=== PATIENT | female | born 1960 | race Caucasian/White ===

== ENCOUNTER 2017-04-22 20:00 | Emergency (ER) | payer OTHER ==
[~2017-04-22] VITALS: Ht 182.9 cm; Wt 128.0 kg
[~2017-04-22 20:00] MED LIST: BENZ100 PO; TRAM50 PO; ZITH250T PO
[2017-04-22 20:09] VITALS: BP 199/97; PULSE 94; RESP 16; TEMP 99.3; O2SAT 98
--- NOTE | 2017-04-22 20:49 | RADRPT ---
EXAM DATE/TIME: 04/22/2017 20:30 [facility] COMPARISON: No previous studies available for comparison. INDICATIONS : Right ankle pain, fell MEDICAL HISTORY : None. SURGICAL HISTORY : None. ENCOUNTER: Initial ACUITY: 1 day PAIN SCORE: 7/10 LOCATION: Right Ankle FINDINGS: Three view exam was performed of the right ankle. The bony structures are in normal alignment. No e vidence of fracture, dislocation, or soft tissue swelling. The ankle mortise is intact. No radiopaq ue foreign bodies are seen. Bony mineralization is normal. CONCLUSION: Unremarkable examination of the right ankle. Lexx Aden Jr., MD on April 22, 2017 at 20:47 Board Certified Radiologist. This report was verified electronically.
--- NOTE | 2017-04-22 20:49 | RADRPT ---
EXAM DATE/TIME: 04/22/2017 20:33 [facility] COMPARISON: No previous studies available for comparison. INDICATIONS : Right foot pain and anterior abrasion, fell MEDICAL HISTORY : None. SURGICAL HISTORY : None. ENCOUNTER: Initial ACUITY: 1 day PAIN SCORE: 7/10 LOCATION: Right Foot FINDINGS: Three view examination of the right foot demonstrates no soft tissue swelling, dislocation, or fractu re. The tarsal bones appear intact. The interphalangeal and metatarsophalangeal joints are intact. The calcaneus is intact. Bony mineralization is normal. CONCLUSION: Unremarkable examination of the right foot. Lexx Aden Jr., MD on April 22, 2017 at 20:47 Board Certified Radiologist. This report was verified electronically.
[2017-04-22 21:24] VITALS: BP 164/96; PULSE 90; RESP 18; O2SAT 96
[2017-04-22] MEDS ORDERED: ESTR0.5T PO (21:24)
[2017-04-22] MEDS ORDERED: ARMO60TA PO (21:24)
--- NOTE | 2017-04-22 21:58 | PD ---
HPI Chief Complaint: Musculoskeletal Complaint Time Seen by Provider: 21:29 Travel History International Travel<30 days: No Contact w/Intl Traveler<30days: No Traveled to known affect area: No History of Present Illness HPI 56-year-old female presents to the ED via EMS after fall down 4 stairs around 7 PM today. Patient states that she missed the last few steps from the pool and landed on her foot and her bottom on concrete. She denies hitting her head or loss of consciousness. On presentation she complains of throbbing 7/10 pain in the ankle and foot. No alleviating or exacerbating factors reported. She has not been ambulatory since the accident. She denies history of previous injury. No treatment attempt at home. She states that she is otherwise healthy and takes no daily medications. PFSH Past Medical History Cancer: No High Cholesterol: Yes Diabetes: No Diminished Hearing: No Glaucoma: No Hepatitis: No Hiatal Hernia: No Hypertension: No Immunizations Current: No Thyroid Disease: No Tetanus Vaccination: Unknown Influenza Vaccination: No Menopausal: Yes : 2 Para: 2 Miscarriage: 0 : 0 Tubal Ligation: Yes (1987) Past Surgical History Section: Yes (1987) Gynecologic Surgery: Yes (LEFT OOPHORECTOMY, ) Hysterectomy: Yes Pacemaker: No Thoracic Surgery: Yes (left breast biopsy benign) Other Surgery: Yes (lymphoma left axillae ) Social History Alcohol Use: Yes (RARELY) Tobacco Use: No Substance Use: No Allergies-Medications (Allergen,Severity, Reaction): Coded Allergies: naproxen (Unverified Allergy, Severe, Anaphylaxis, 01/26/17) Reported Meds & Prescriptions Reported Meds & Active Scripts Active Ibuprofen 800 Mg Tab 800 Mg PO Q8H PRN Reported [place] Thyroid (Thyroid) 60 Mg Tab 60 Mg PO DAILY Estradiol 0.5 Mg Tab 0.5 Mg PO DAILY Review of Systems Except as stated in HPI: all other systems reviewed are Neg Physical Exam Narrative GENERAL: Well-nourished, well-developed white female in no acute distress. SKIN: Focused skin assessment warm/dry. HEAD: Normocephalic. EYES: No scleral icterus. No injection or drainage. NECK: Supple, trachea midline. No JVD or lymphadenopathy. CARDIOVASCULAR: Regular rate and rhythm without murmurs, gallops, or rubs. RESPIRATORY: Breath sounds equal bilaterally. No accessory muscle use. GASTROINTESTINAL: Abdomen soft, non-tender, nondistended. MUSCULOSKELETAL: No cyanosis, or edema. Focused right lower extremity exam: 2+ DP pulse. Tender edema and ecchymosis of the lateral malleolus. No tenderness to palpation of the base of the fifth. No navicular tenderness. Squeeze test negative. Cap refill less than 2 seconds. Sensation intact to light touch distally. BACK: Nontender without obvious deformity. No CVA tenderness. Data Data Last Documented VS Vital Signs Date Time Temp Pulse Resp B/P (MAP) Pulse Ox O2 Delivery O2 Flow Rate FiO2 04/22/17 22:24 04/22/17 21:24 90 18 96 Room Air 04/22/17 20:09 99.3 Orders Orders Foot, Complete ([id number]) (04/22/17 ) Ankle, Complete ([id number]) (04/22/17 ) Ibuprofen (Motrin) (04/22/17 22:00) Crutches (04/22/17 21:58) Splint Or Brace Apply/Monitor (04/22/17 21:58) Tremaine Bandage (04/22/17 21:58) Ed Discharge Order (04/22/17 21:58) Acetamin-Hydrocod 325-7.5 Mg ([place] 7.5 (04/22/17 22:15) MDM Medical Decision Making Medical Screen Exam Complete: Yes Emergency Medical Condition: Yes Differential Diagnosis Ankle sprain versus foot sprain versus musculoskeletal pain versus other Narrative Course 56-year-old female presents to the ED via EMS after fall down 4 stairs around 7 PM today. Patient states that she missed the last few steps from the pool and landed on her foot and her bottom on concrete. She denies hitting her head or LOC. She complains of throbbing 7/10 pain in the ankle and foot. She has not been ambulatory since the accident. Vitals reviewed. She is hypertensive on presentation, likely secondary to pain. Physical exam reveals a well-appearing white female in no acute distress. Focused right lower extremity exam reveals 2 + DP pulse. Tender edema and ecchymosis of the lateral malleolus. No tenderness to palpation of the base of the fifth. No navicular tenderness. Squeeze test negative. Cap refill less than 2 seconds. Sensation intact to light touch distally. The patient was administered 800 mg ibuprofen and 7.5 mg Lortab. X-rays of the ankle and foot reveal no acute bony injury per radiology read. This is ankle and foot sprain. Tremaine wrap, Velcro splint and crutches are provided to the patient. She is prescribed a short course of anti- inflammatories. She is instructed to rest, ice, elevate and compress the extremity, follow up with the bss solution architect. She indicated understanding of instructions and is agreeable care plan. She is stable and discharged home. Diagnosis Primary Impression: Inversion sprain of right ankle Qualified Codes: S93.401A - Sprain of unspecified ligament of right ankle, initial encounter Additional Impression: Sprain of right foot Qualified Codes: S93.601A - Unspecified sprain of right foot, initial encounter Referrals: Jun Preston DPM Patient Instructions: Ankle Sprain (ED), Foot Sprain (ED), General Instructions Additional Instructions: Rest, ice, elevate the extremity. Apply ice no longer than 10-15 minutes per hour a few times a day. 800 mg ibuprofen up to 3 times a day as needed for pain. Return to normal, gentle activity as tolerated. Weight-bearing as tolerated. No running, jumping activities for the next few weeks. Follow up with the bss solution architect. Return to the ED for any urgent or emergent medical condition. Med/Other Pt SpecificInfo: Prescription(s) given Scripts Ibuprofen (Ibuprofen) 800 Mg Tab 800 MG PO Q8H Y for Pain/Inflammation, #21 TAB 0 Refills Prov: Buddy Sheppard MD 04/22/17 Disposition: 01 DISCHARGE HOME Condition: Stable Gifty Anderson Apr 22, 2017 21:58
[2017-04-22] MEDS ORDERED: IBUPROFEN 800 MG TAB PO ONE (22:00)
[2017-04-22] MEDS ORDERED: IBUP1TAB7 PO (22:01)
[2017-04-22] MEDS ORDERED: ACETAMINOPHEN/HYDROcodone 325 MG/7.5 MG TAB PO ONE (22:15)
== END 2017-04-22 22:25 | disposition home or self-care (01) ==
LOC: NEPC 20:00
DX: S93.401A Sprain of unspecified ligament of right ankle, initial encounter (principal); S93.601A Unspecified sprain of right foot, initial encounter; E78.00 Pure hypercholesterolemia, unspecified; W10.9XXA Fall (on) (from) unspecified stairs and steps, initial encounter; Z79.899 Other long term (current) drug therapy
CPT/HCPCS: 73610; 73630; 99283; E0113; L1906